=== PATIENT | male | born 1955 | race Caucasian/White ===

== ENCOUNTER → 2025-08-22 | Outpatient (CLI) | payer MEDICARE, SELFPAY ==
--- NOTE | 2025-08-22 17:30 | CT_ITS ---
PROCEDURE: SINUS/FACIAL BONE 08/22/2025 REASON FOR EXAM: OTHER CHRONIC SINUSITIS TECHNIQUE: Procedure Code: CTSI Modality: CT Procedure: SINUS/FACIAL BONE Coronal and Sagittal reconstruction series were provided. One or more dose reduction techniques were used (e.g., Automated exposure control, adjustment of the mA and/or kV according to patient size, use of iterative reconstruction technique). RADIATION DOSE SUMMARY: DLP: 2650 mGycm COMPARISON: None FINDINGS: Nasal septum and turbinates: There is no nasal septum deviation. Normal turbinates. No ирина bullosa or polyp. Left osteomeatal unit complex: No ostiomeatal unit obstruction. Right osteomeatal unit complex: No ostiomeatal unit obstruction. The ethmoids are nearly completely opacified on the right and left. The frontal sinus shows mucosal thickening measuring 0.4 cm in the right and left The maxillary sinuses show mucosal thickening measuring 0.9 cm on the right, 0.7 cm in the left.. Sphenoid sinuses: There is a mucosal thickening in the sphenoid sinus measuring 0.3 cm. Orbital and facial soft tissues: Within normal limits. CT/Sinus/Facial Bone IMPRESSION: Pansinusitis. Reading Location: [facility]
--- OUTSIDE RECORDS SUMMARY | 2025-08-22 17:33 | XMS RPT_ITS | CCD ---
Author Organization [facility] Inform ion [facility] Care Team Providers Care Section Weaver Name Role Phone DOMINGO DO, DR DIYA Freeman Primary Care Physician DOMINGO DO, DR DIYA Freeman Attending Unavailabl e DOMINGO DO, DR DIYA Freeman Primary Care Unavailabl e Domingo DO, Diya Gonzalez Primary Care Provider DOMINGO, DIYA OGNZALEZ Primary Care Unavailable RUBENS PROCTOR Attending Unavailable SELF Referring Unavailable DOMINGO, DIYA GONZALEZ Primary Care Unavailable CAMILO OCONNOR JR Attending Unavailable DOMINGO DO, DR DIYA Freeman Attending Unavailabl e DOMINGO DO, DR DIYA Freeman Primary Care Unavailabl e DOMINGO DO, DR DIYA Freeman Attending Unavailabl e DOMINGO DO, DR DIYA Freeman Primary Care Unavailabl e [place] FLORES Attending Unavailabl e DOMINGO DO, DR DIYA Freeman Primary Care Unavailabl e Allergies Allergy Classification Reported Allergen(s) Allergy Type Date of Onset Reaction(s) Facility (5 sources) Bee/Wasp/Ant venom Allergy to substance Swelling (finding) [facility] (5 sources) Penicillin; Translations: [penicillins] Drug Allergy [facility] (3 sources) Penicillins; Translations: [PENICILLINS] Drug Allergy 5 Unknown [facility] (3 sources) Bee Sting; Translations: [BEE STING] Allergy to substance 5 Swelling [facility] Medications Current Medications Medication Drug Class(es) Dates Sig (Normalized) Sig (Original) [id number] 200 actuat albuterol 0.09 mg/actuat metered dose inhaler (1 source) beta2-Adrenergic Agonist Start: 03-30-2025 End: 04-29-2025 take 2 puff(s) by inhalation every four hours as needed for wheezing albuterol HFA (PROVENTIL HFA, VENTOLIN HFA) 90 mcg/actuation inhaler Indications: Wheezing Inhale 2 puffs as instructed every 4 hours as needed for wheezing/shortnes s of breath (as needed). 1 each 03/30/2025 04/29/2025 Active Ascorbic Acid (2 sources) Vitamin C Start: 04-02-2025 Vitamin C qDay, 0 Refill(s) Start Date: 04/02/25 Status: Ordered Medication Dispense Status: Completed Total Allowed Fills: 1 Fills Dispensed: 0 brompheniramine maleate 0.4 mg/ml / dextromethorphan hydrobromide 2 mg/ml / pseudoephedrine hydrochloride 6 mg/ml oral solution (1 source) alpha-Adrenergic Agonist, Uncompetitive L-maizxj-M-aspartat e Receptor Antagonist, Sigma-1 Agonist Start: 03-30-2025 End: 04-06-2025 take 10 mL by mouth four times daily as needed Brompheniramine-P seudoeph-DM (BROMFED DM) 2-30-10 mg/5 mL syrup Indications: URI, acute , Acute cough Take 10 mL by mouth four times a day as needed (Cold Symptoms) for up to 7 days. 200 mL 03/30/2025 04/06/2025 Active cetirizine hydrochloride 10 mg oral tablet (1 source) Histamine-1 Receptor Antagonist Start: 03-30-2025 End: 04-29-2025 take 1 tablet by mouth once daily cetirizine (ZYRTEC) 10 mg tablet Indications: URI, acute , Acute cough Take 1 tablet by mouth once daily. 14 tablet 03/30/2025 04/29/2025 Active doxycycline hyclate 100 mg oral capsule (1 source) Tetracycline-class Drug Start: 02-16-2025 End: 02-26-2025 take 1 capsule by mouth twice daily doxycycline hyclate (VIBRAMYCIN) 100 mg capsule Take 1 capsule by mouth two times a day for 10 days. 20 capsule 02/16/2025 02/26/2025 Active esomeprazole 40 mg delayed release oral capsule (6 sources) Proton Pump Inhibitor Start: 03-29-2024 esomeprazole 40 mg oral delayed release capsule Dose : 40 mg = 1 cap(s), Oral, qDay, # 90 cap(s), 3 Refill(s), Pharmacy: [facility], 172.6, cm, 01/23/24 16:35:00 EDT, Height, kg, 01/26/24 12:22:00 EDT, Dosing Weight Start Date: 03/29/24 Status: Ordered Medication Dispense Status: Completed Quantity: 90.0 Unit: cap(s) Total Allowed Fills: 4 Fills Dispensed: 0 Start: 08-02-2022 esomeprazole 4 0 mg oral delayed release capsule Dose : 40 mg = 1 cap(s), Oral, qDay, # 90 cap(s), 3 Refill(s), Pharmacy: [facility], 175.3, cm, 03/28/22 15:48:00 EDT, Height Start Date: 08/02/22 Status: Ordered Start: 07-31-2019 esomeprazole 4 0 mg oral delayed release capsule Dose : 40 mg = 1 cap(s), Oral, qDay, 0 Refill(s) Start Date: 07/31/19 Status: Ordered esomeprazole 40 mg oral delayed release capsule (1 source) Start: 07-31-2019 esomeprazole 4 0 mg oral delayed release capsule Dose : 40 mg = 1 cap(s), Oral, qDay, 0 Refill(s) Start Date: 07/31/19 Status: Ordered Fish Oils (2 sources) Start: 04-02-2025 omega-3 fish o il 1000 mg oral capsule Dose : 1,000 mg = 1 cap(s), Oral, TID, # 90 cap(s), 0 Refill(s) Start Date: 04/02/25 Status: Ordered Medication Dispense Status: Completed Quantity: 90.0 Unit: cap(s) Total Allowed Fills: 1 Fills Dispensed: 0 levoFLOXacin 500 mg oral tablet (1 source) Quinolone Antimicrobial Start: 05-08-2025 End: 05-18-2025 levoFLOXacin 500 mg oral tablet Dose : 500 mg = 1 tab(s), Oral, q24h, X 10 day(s), # 10 tab(s), 0 Refill(s), 05/18/25 3:53:00 PM EDT, Pharmacy: [id number], Chronic sinusitis, 174, cm, 05/08/25 15:30:00 EDT, Height, 97.1, kg, 05/08/25 15:30:00 EDT, Dosing Weight Start Date: 05/08/25 Stop Date: 05/18/25 Status: Ordered Medication Dispense Status: Completed Quantity: 10.0 Unit: tab(s) Total Allowed Fills: 1 Fills Dispensed: 0 Indications: Chronic sinusitis, unspecified; predniSONE 10 mg oral tablet (4 sources) Start: 05-08-2025 End: 05-20-2025 predniSONE 10 mg oral tablet Dose : 10 mg = 1 tab(s), Oral, qDay, 4 tabs for 3 days, 3 tabs for 3 days, 2 tabs for 3 days, 1 tab for 3 days. Take with food, # 30 tab(s), 0 Refill(s), [id number], Chronic sinusitis Wheezing, 174, cm, 05/08/25 15:30:00 EDT, Height, kg, 05/08/25 15:30:00 EDT, Dosing Weight Start Date: 05/08/25 Stop Date: 05/20/25 Status: Ordered Medication Dispense Status: Completed Quantity: 30.0 Unit: tab(s) Total Allowed Fills: 1 Fills Dispensed: 0 Indications: Wheezing; Chronic sinusitis, unspecified; Start: 04-14-2025 End: 04-19-2025 predniSONE 20 mg oral tablet Dose : 40 mg = 2 tab(s), Oral, qDay, Take with food, X 5 day(s), # 10 tab(s), 0 Refill(s), 04/19/25 10:27:00 AM EDT, [id number], 174, cm, 04/14/25 9:30:00 EDT, Height, kg, 04/14/25 9:30:00 EDT, Dosing Weight Start Date: 04/14/25 Stop Date: 04/19/25 Status: Ordered Medication Dispense Status: Completed Quantity: 10.0 Unit: tab(s) Total Allowed Fills: 1 Fills Dispensed: 0 Start: 02-16-2025 take 1 tablet by alisha th three times daily, then take 1 tablet by mouth twice daily, then take 1 tablet by mouth once daily, then take 0.5 tablet by mouth once daily predniSONE (DELTASONE) 20 mg tablet 20 mg p.o. 3 times daily for 3 days, 20 mg p.o. twice daily for 2 days, 20 mg once a day for 1 day, half a tablet 1 day for 1 day 15 tablet 02/16/2025 Active rosuvastatin calcium 10 mg oral tablet (7 sources) HMG-CoA Reductase Inhibitor Start: 03-29-2024 rosuvastatin 10 mg oral tablet Dose : 10 mg = 1 tab(s), Oral, qDay, # 90 tab(s), 3 Refill(s), Pharmacy: [facility], 172.6, cm, 01/23/24 16:35:00 EDT, Height, kg, 01/26/24 12:22:00 EDT, Dosing Weight Start Date: 03/29/24 Status: Ordered Medication Dispense Status: Completed Quantity: 90.0 Unit: tab(s) Total Allowed Fills: 4 Fills Dispensed: 0 Start: 05-18-2022 rosuvastatin 1 0 mg oral tablet Dose : 10 mg = 1 tab(s), Oral, qDay, # 90 tab(s), 3 Refill(s), Pharmacy: [facility] ([facility]), 175.3, cm, 03/28/22 15:48:00 EDT, Height, kg, 03/28/22 15:48:00 EDT, Dosing Weight Start Date: 05/18/22 Status: Ordered Start: 06-09-2021 rosuvastatin 1 0 mg oral tablet Dose : 10 mg = 1 tab(s), Oral, qDay, # 90 tab(s), 3 Refill(s), Pharmacy: [facility], 174.4, cm, 11/18/20 8:38:00 EDT, Height, kg, 11/18/20 8:38:00 EDT, Dosing Weight Start Date: 06/09/21 Status: Ordered Vitamin D with Minerals oral tablet (2 sources) Start: 04-02-2025 take 1 tablet by mouth once daily Vitamin D with Minerals oral tablet tab(s), Oral, qDay, 0 Refill(s) Start Date: 04/02/25 Status: Ordered Medication Dispense Status: Completed Total Allowed Fills: 1 Fills Dispensed: 0 Vitamin E (2 sources) Start: 04-02-2025 vitamin E Oral , 0 Refill(s) Start Date: 04/02/25 Status: Ordered Medication Dispense Status: Completed Total Allowed Fills: 1 Fills Dispensed: 0 Problems Problem Classification Problem Date Documented Date Episodic/Chronic Bacterial infection; unspecified site (1 source) Other specified bacterial agents as the cause of diseases classified elsewhere; Translations: [Bacterial sinusitis] Onset: 02-16-2025 Episodic Disorders of lipid metabolism (5 sources) Dyslipidemia 07-31-2019 Chronic Esophageal disorders (7 sources) Gastroesophageal reflux disease; 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] 07-31-2019 Chronic Other connective tissue disease (3 sources) Disorder of tendon 07-31-2019 Episodic Other lower respiratory disease (1 source) Wheezing; Translations: [Wheezing] Onset: 03-30-2025 Episodic Other lower respiratory disease (1 source) Cough; Translations: [Acute cough] 03-30-2025 Episodic Other lower respiratory disease (1 source) Wheezing; Translations: [Wheezing] 03-30-2025 Episodic Other upper respiratory infections (2 sources) Bacterial sinusitis; Translations: [Chronic sinusitis, unspecified] Onset: 02-16-2025 02-16-2025 Chronic Other upper respiratory infections (2 sources) Acute upper respiratory infection, unspecified; Translations: [Acute upper respiratory infection] Onset: 03-30-2025 03-30-2025 Episodic Otitis media and related conditions (2 sources) Acute bilateral otitis media ; Translations: [Otitis media, unspecified, bilateral] Onset: 02-16-2025 02-16-2025 Episodic Unclassified (1 source) Acute cough; Translations: [Acute cough] Onset: 03-30-2025 Results Test Name Value Interpretation Reference Range Facility XR SINUSES PARANASAL MINIMUM 3 VIEWSon 05-09-2025 XR SINUSES PARANASAL MINIMUM 3 VIEWS ORIGINAL EXAMINATION: 5 XRAY VIEWS OF THE SINUSES05/08/2025 4:26 pm COMPARISON: None. HISTORY: ORDERING SYSTEM PROVIDED HISTORY: Reason for Exam: 8 weeks of sinus congestion FINDINGS: Mucosal thickening suspected in the maxillary sinuses. No air-fluid levels visible. No significant fluid is suspected in the frontal sinuses. Bony orbits appear intact. Degenerative changes seen of the visualized cervical spine. There is probable fluid in the mastoid air cells. IMPRESSION: 1. Suspect mucosal thickening in the maxillary sinuses. No air-fluid levels. 2. Probable fluid in the mastoid air cells. Interpreted by: Emmanuel Lopes MD Preliminary Report By: Emmanuel Lopes MD Electronically signed By Emmanuel Lopes MD Dictated Date: 05/09/2025 1:10:45 PM Prelim Date: 05/09/2025 1:11:37 PM Sign Date: 05/09/2025 1:11:37 PM Ordering Provider: DIYA Lopez [facility] .Auto Diffon 04-14-2025 Basophil, Absolute 0.1 10 3/mcL Normal 0.0-0.3 [place] Comment on above: Performed By: #### C BC, ANEU, ADIFF, CMP, GFR #### [address] [address] Basophils/100 WBC (Bld) 0.7 % Normal 0.0-2.5 [facility] Comment on above: Performed By: #### C BC, ANEU, ADIFF, CMP, GFR #### [address] [address] Eosinophil, Absolute 0.5 10 3/mcL Normal 0.0-0.7 [facility] Comment on above: Performed By: #### C BC, ANEU, ADIFF, CMP, GFR #### [address] [address] Eosinophils/100 WBC (Bld) 6.3 % High 0.0-6.0 [facility] Comment on above: Performed By: #### C BC, ANEU, ADIFF, CMP, GFR #### [address] [address] Lymphocyte, Absolute 2.3 10 3/mcL Normal 0.9-4.3 [facility] Comment on above: Performed By: #### C BC, ANEU, ADIFF, CMP, GFR #### [address] [address] Lymphocytes/100 WBC (Bld) 28.3 % Normal 20.0-40.0 [facility] Comment on above: Performed By: #### C BC, ANEU, ADIFF, CMP, GFR #### [address] [address] Monocyte, Absolute 0.8 10 3/mcL Normal 0.1-1.4 [place] Comment on above: Performed By: #### C BC, ANEU, ADIFF, CMP, GFR #### [address] [address] Monocytes/100 WBC (Bld) 9.2 % Normal 2.0-13.0 [facility] Comment on above: Performed By: #### C BC, ANEU, ADIFF, CMP, GFR #### [address] [address] Neutrophils/100 WBC (Bld) 55.5 % Normal 50.0-75.0 [facility] Comment on above: Performed By: #### C BC, ANEU, ADIFF, CMP, GFR #### [address] [address] .GFRon 04-14-2025 Estimated Glomerular Filtration Rate 94 ml/min/1.73sqm Normal [facility] Comment on above: Result Comment: Stages of Chronic Kidney Disease (CKD) Stage Description eGFR(ml/min/1.73 sq.m.) CKD 1 Normal kidney function or >=90 normal kindney function with possible kidney damage (ex. Proteinuria) CKD 2 Kidney damage with mild loss 60-89 of kidney function CKD 3a Mild to moderate loss of kidney 45-59 function CKD 3b Moderate to severe loss of 30-44 of kindey function CKD 4 Severe loss of kidney function 15-29 CKD 5 Kidney failure <15 Note: (go live 2024) the eGFR calculation was updated to the 2020 CKD-EPI creatinine equation without a race factor to calculate the eGFR results. Performed By: #### C BC, ANEU, ADIFF, CMP, GFR ####[address] [address] .NEUABSon 04-14-2025 Neutrophil, Absolute 4.6 10 3/mcL Normal 2.3-8.1 [facility] Comment on above: Performed By: #### C BC, ANEU, ADIFF, CMP, GFR #### [address] [address] CBCon 04-14-2025 Erythrocyte distribution width (RBC) [Ratio] 13.0 % Normal 11.5-15.5 [facility] Comment on above: Performed By: #### C BC, ANEU, ADIFF, CMP, GFR #### [place] [address] Hematocrit (Bld) [Volume fraction] 43.4 % Normal 40.0-52.0 [facility] Comment on above: Performed By: #### C BC, ANEU, ADIFF, CMP, GFR #### [place] [address] Hgb 14.8 G/dL Normal 13.0-17.5 [facility] Comment on above: Performed By: #### C BC, ANEU, ADIFF, CMP, GFR #### [place] [address] MCH (RBC) [Entitic mass] 31.6 pg Normal 27.0-33.0 [facility] Comment on above: Performed By: #### C BC, ANEU, ADIFF, CMP, GFR #### [place] [address] MCHC 34.0 G/dL Normal 32.0-36.0 [facility] Comment on above: Performed By: #### C BC, ANEU, ADIFF, CMP, GFR #### [place] [address] MCV (RBC) [Entitic vol] 93.0 fL Normal 81.0-100.0 [facility] Comment on above: Performed By: #### C BC, ANEU, ADIFF, CMP, GFR #### [address] [address] Platelet 211 10 3/mcL Normal 150-450 [facility] Comment on above: Performed By: #### C BC, ANEU, ADIFF, CMP, GFR #### [address] [address] Platelet mean volume (Bld) [Entitic vol] 7.5 fL Normal 6.4-10.5 [facility] Comment on above: Performed By: #### C BC, ANEU, ADIFF, CMP, GFR #### [address] [address] RBC 4.67 10 6/mcL Normal 4.50-6.00 [facility] Comment on above: Performed By: #### C BC, ANEU, ADIFF, CMP, GFR #### [address] [address] WBC 8.3 10 3/mcL Normal 4.5-10.8 [facility] Comment on above: Performed By: #### C BC, ANEU, ADIFF, CMP, GFR #### [place] [id number] CMPon 04-14-2025 Albumin Level 4.1 G/dL Normal 3.4-4.8 [facility] Comment on above: Performed By: #### C BC, ANEU, ADIFF, CMP, GFR #### [place] [address] Albumin/Globulin [Mass ratio] 0.9 {ratio} Low 1.1-2.5 [facility] Comment on above: Performed By: #### C BC, ANEU, ADIFF, CMP, GFR #### [address] [address] ALP [Catalytic activity/Vol] 86 U/L Normal 40-135 [facility] Comment on above: Performed By: #### C BC, ANEU, ADIFF, CMP, GFR #### [place] [id number] ALT [Catalytic activity/Vol] 37 U/L Normal 16-63 [facility] Comment on above: Performed By: #### C BC, ANEU, ADIFF, CMP, GFR #### [place] [id number] AST [Catalytic activity/Vol] 22 U/L Normal 10-40 [facility] Comment on above: Performed By: #### C BC, ANEU, ADIFF, CMP, GFR #### [address] [address] Bili Total 0.5 mg/dL Normal 0.2-1.0 [facility] Comment on above: Result Comment: Use of this assay is not recommended for patients undergoing treatment with eltrombopag due to the potential for falsely elevated results. Performed By: #### C BC, ANEU, ADIFF, CMP, GFR #### [address] [address] BUN/Creatinine Ratio 16 ratio Normal 7-27 [place] Comment on above: Performed By: #### C BC, ANEU, ADIFF, CMP, GFR #### [address] [address] Calcium [Mass/Vol] 9.8 mg/dL Normal 8.4-10.2 [facility] Comment on above: Performed By: #### C BC, ANEU, ADIFF, CMP, GFR #### [address] [address] Chloride [Moles/Vol] 102 mmol/L Normal 98-107 [place] Comment on above: Performed By: #### C BC, ANEU, ADIFF, CMP, GFR #### [address] [address] CO2 [Moles/Vol] 28 mmol/L Normal 23-31 [facility] Comment on above: Performed By: #### C BC, ANEU, ADIFF, CMP, GFR #### [address] [address] Creatinine [Mass/Vol] 0.88 mg/dL Normal 0.67-1.17 [facility] Comment on above: Performed By: #### C BC, ANEU, ADIFF, CMP, GFR #### [address] [address] Electrolyte Balance 9.0 mEq/L Normal 4.0-15.0 [facility] Comment on above: Performed By: #### C BC, ANEU, ADIFF, CMP, GFR #### [address] [address] Globulin 4.4 G/dL Normal 2.7-4.4 [facility] Comment on above: Performed By: #### C BC, ANEU, ADIFF, CMP, GFR #### [address] [address] Glucose [Mass/Vol] 108 mg/dL Normal 80-115 [facility] Comment on above: Performed By: #### C BC, ANEU, ADIFF, CMP, GFR #### [address] [address] Potassium [Moles/Vol] 4.2 mmol/L Normal 3.5-5.1 [facility] Comment on above: Performed By: #### C BC, ANEU, ADIFF, CMP, GFR #### [address] [address] Sodium [Moles/Vol] 139 mmol/L Normal 136-145 [facility] Comment on above: Performed By: #### C BC, ANEU, ADIFF, CMP, GFR #### [address] [address] Total Protein 8.5 G/dL High 6.4-8.2 [facility] Comment on above: Performed By: #### C BC, ANEU, ADIFF, CMP, GFR #### [address] [address] Urea nitrogen [Mass/Vol] 14 mg/dL Normal 7-18 [facility] Comment on above: Performed By: #### C BC, ANEU, ADIFF, CMP, GFR #### [address] [address] LABORATORYOrdered By: SYSTEM SYSTEM on 04-14-2025 Albumin BCP dye [Mass/Vol] 4.1 G/dL Normal 3.4 - 4.8 G/dL AO ADM SS Albumin/Globulin [Mass ratio] 0.9 {ratio} Low 1.1 - 2.5 ratio AO ADM SS ALP [Catalytic activity/Vol] 86 U/L Normal 40 - 135 U/L AO ADM SS ALT With P-5'-P [Catalytic activity/Vol] 37 U/L Normal 16 - 63 U/L AO ADM SS AST With P-5'-P [Catalytic activity/Vol] 22 U/L Normal 10 - 40 U/L AO ADM SS Basophils (Bld) [#/Vol] 0.1 103/mcL Normal 0.0 - 0.3 10^3/mcL AO Workflow SS Basophils/100 WBC (Bld) 0.7 % Normal 0.0 - 2.5 % AO Workflow SS Bilirubin [Mass/Vol] 0.5 mg/dL Normal 0.2 - 1 .0 mg/dL AO ADM SS Comment on above: Interpretive Data: U se of this assay is not recommended for patients undergoing treatment with eltrombopag due to the potential for falsely elevated results. Calcium [Mass/Vol] 9.8 mg/dL Normal 8.4 - 10. 2 mg/dL AO ADM SS Chloride [Moles/Vol] 102 mmol/L Normal 98 - 10 7 mmol/L AO ADM SS CO2 [Moles/Vol] 28 mmol/L Normal 23 - 31 mmol/L AO ADM SS Creatinine [Mass/Vol] 0.88 mg/dL Normal 0.67 - 1.17 mg/dL AO ADM SS Electrolyte Balance 9.0 mEq/L Normal 4.0 - 15 .0 mEq/L AO ADM SS Eosinophil, Absolute 0.5 103/mcL Normal 0.0 - 0 .7 10^3/mcL AO Workflow SS Eosinophils/100 WBC (Bld) 6.3 % High 0.0 - 6.0 % AO Workflow SS Erythrocyte distribution width (RBC) [Ratio] 13.0 % Normal 11.5 - 15.5 % AO Workflow SS Estimated Glomerular Filtration Rate 94 ml/min/1.73sqm Invalid Interpretation Code AO Chemistry S Comment on above: Interpretive Data: Stages of Chronic Kidney Disease (CKD) Stage Description eGFR(ml/min/1.73 sq.m.) CKD 1 Normal kidney function or >=90 normal kindney function with possible kidney damage (ex. Proteinuria) CKD 2 Kidney damage with mild loss 60-89 of kidney function CKD 3a Mild to moderate loss of kidney 45-59 function CKD 3b Moderate to severe loss of 30-44 of kindey function CKD 4 Severe loss of kidney function 15-29 CKD 5 Kidney failure <15 Note: (go live 2024) the eGFR calculation was updated to the 2020 CKD-EPI creatinine equation without a race factor to calculate the eGFR results. Globulin 4.4 G/dL Normal 2.7 - 4.4 G/dL AO ADM SS Glucose [Mass/Vol] 108 mg/dL Normal 80 - 115 mg/dL AO ADM SS Hematocrit (Bld) [Volume fraction] 43.4 % Normal 40.0 - 52.0 % AO Workflow SS Hemoglobin (Bld) [Mass/Vol] 14.8 G/dL Normal 13.0 - 17.5 G/dL AO Workflow SS Lymphocytes (Bld) [#/Vol] 2.3 103/mcL Normal 0.9 - 4.3 10^3/mcL AO Workflow SS Lymphocytes/100 WBC (Bld) 28.3 % Normal 20.0 - 40.0 % AO Workflow SS MCH (RBC) [Entitic mass] 31.6 pg Normal 27.0 - 33.0 pg AO Workflow SS MCHC 34.0 G/dL Normal 32.0 - 36.0 G/dL AO Workflow SS MCV (RBC) [Entitic vol] 93.0 fL Normal 81.0 - 100.0 fL AO Workflow SS Monocytes (Bld) [#/Vol] 0.8 103/mcL Normal 0.1 - 1.4 10^3/mcL AO Workflow SS Monocytes/100 WBC (Bld) 9.2 % Normal 2.0 - 13.0 % AO Workflow SS Neutrophils (Bld) [#/Vol] 4.6 103/mcL Normal 2.3 - 8.1 10^3/mcL AO Workflow SS Neutrophils/100 WBC (Bld) 55.5 % Normal 50.0 - 75.0 % AO Workflow SS Platelet mean volume (Bld) [Entitic vol] 7.5 fL Normal 6.4 - 10.5 fL AO Workflow SS Platelets (Bld) [#/Vol] 211 103/mcL Normal 150 - 450 10^3/mcL AO Workflow SS Potassium [Moles/Vol] 4.2 mmol/L Normal 3.5 - 5.1 mmol/L AO ADM SS Protein [Mass/Vol] 8.5 G/dL High 6.4 - 8.2 G/dL AO ADM SS RBC (Bld) [#/Vol] 4.67 106/mcL Normal 4.50 - 6.0 0 10^6/mcL AO Workflow SS Sodium [Moles/Vol] 139 mmol/L Normal 136 - 145 mmol/L AO ADM SS Urea nitrogen [Mass/Vol] 14 mg/dL Normal 7 - 18 mg/dL AO ADM SS Urea nitrogen/Creatinine [Mass ratio] 16 ratio Normal 7 - 27 ratio AO ADM SS WBC (Bld) [#/Vol] 8.3 103/mcL Normal 4.5 - 10.8 10^3/mcL AO Workflow SS XR CHEST 2 VIEWSon 5 XR CHEST 2 VIEWS ORIGINAL EXAMINATION: TWO XRAY VIEWS OF THE CHEST TECHNIQUE: CHEST PA and LATERAL COMPARISON: 12/20/2017 HISTORY: ORDERING SYSTEM PROVIDED HISTORY: Reason for Exam: cough greater than 3 weeks FINDINGS: The heart is normal in size. The mediastinal silhouette is unremarkable. Atherosclerosis of the aorta. No consolidation. No vascular congestion. No pleural effusion or pneumothorax. No aggressive osseous lesions. Mild degenerative changes of the thoracic spine. Spinal curvature noted. IMPRESSION: No acute radiographic finding. I have personally reviewed the images of this examination and agree with the resident's findings and interpretation. Interpreted by: Brody Multani MD Preliminary Report By: Daniel Shane Electronically signed By Brody Multani MD Dictated Date: 04/14/2025 10:56:18 AM Prelim Date: 04/14/2025 12:02:29 PM Sign Date: 04/14/2025 12:02:29 PM [facility] -------- GEORGES MELGAR ([id number]) 1955 Date Time Provider Department 03/30/25 9:15 AM CAMILO OCONNOR JR [facility] During your visit today, we recorded the following information about you: Temperature Pulse Respiration Blood pressure 97.5 degrees 76/minute 18/minute 179/80 Weight 98.4 kg Camilo Oconnor Jr., [employer] 03/30/2025 9:56 AM Signed - Continue taking Cetirizine (Zyrtec) once daily as you started. - Use the Bromfed DM cough syrup provided. Take as needed every 4 hours for cough and nasal congestion; best taken at bedtime since it may cause drowsiness. Avoid using it before activities that require full alertness. - Try the albuterol inhaler only if you notice wheezing or chest tightness. Prime a new inhaler (or one unused for =3 months) per instructions, then take 2 puffs 2 minutes apart; you may repeat every 4-6 hours as needed. You might feel a brief ?jumpy? sensation for 10-30 minutes, which is normal. - Recheck your blood pressure outside the office--either at a pharmacy or with a reliable upper-arm home cuff (avoid wrist devices)--to see if the elevated reading today reflects ?white-coat? effect. - Call or return to the clinic if your cough, chest congestion, or ear symptoms worsen, if you develop a fever, or if you have any new concerns. Camilo Oconnor Jr., YOVANNY.INDUSTRIAL RETROFIT DESIGNER 03/30/2025 10:02 AM Signed [facility] [place] Subjective Georges Melgar is a 69 year old male. Patient presents with: Cough: Sinus congestion, ears plugged x 1 month Finished medication from last visit only felt better for 1 week Cough Cough and Congestion: - Cough and congestion x3 weeks, with recent onset of right ear fullness. - Describes a raspy gurgling sound when breathing, particularly noticeable at night. - Denies fever, dyspnea, chest pain, nausea, emesis, diarrhea, or rashes. - Began taking Zyrtec yesterday; denies use of Kimber or other antihistamines prior. - No history of asthma. - Denies previous tonsillectomy. Hypertension: - Denies known history of HTN. - Recent BP readings: 148/88 mmHg in February; 179/80 mmHg today. - Consumed several cups of coffee prior to today's visit. Review of Systems Respiratory: Positive for cough. Constitutional: (-) fever Ears/Nose/Mouth/Th roat: (+) right ear fullness, (+) hoarseness, (-) ear pain Cardiovascular: (-) chest pain Respiratory: (+) cough, (+) wheezing, (+) noisy breathing, (-) shortness of breath Gastrointestinal: (-) nausea, (-) vomiting, (-) diarrhea Skin: (-) rash Objective BP 179/80 Pulse 76 Temp 36.4 ?C (97.5 ?F) Resp 18 Wt 98.4 kg (217 lb) SpO2 95% Physical Exam General: No acute distress. HEENT: Left tympanic membrane pearly ogden, no signs of infection; right tympanic membrane pearly ogden, no signs of infection; ear canals appear normal, no erythema; no cerumen impaction bilaterally; no pain with manipulation of right earlobe; oropharynx unremarkable, no cobblestoning, tonsils present and small. CV: Heart sounds normal, regular rhythm. Resp: Lungs clear to auscultation bilaterally, no rales, no stridor. Abd: Bowel sounds normal; no tenderness to palpation. Skin: Warm and dry { 1. URI, acute (J06.9) 2. Acute cough (R05.1) 3. Wheezing (R06.2) - Symptoms and exam findings most consistent with viral URI; bacterial infection less likely given absence of fever, normal tympanic membranes, and no cobblestoning of the oropharynx. - Start Bromfed DM every 4 hours PRN for cough; advised patient of sedative effects and to avoid operating heavy machinery. - Continue Zyrtec as started by patient. - Start albuterol inhaler 2 puffs every 4-6 hours PRN for wheezing; provided education on proper use and potential side effects (e.g., jitteriness). - Advised patient to follow up if symptoms worsen or do not improve. and Recording using ambient [employer] software for draft documentation of the visit was discussed with the patient/authorized benefits representative; all questions welcomed and answered. Patient/authorized benefits representative agreed to proceed Differential Diagnoses - Upper respiratory infection viral is more likely for the following reason(s): suggested by HANDP - Otitis media is less likely for the following reason(s): HANDP not suggestive Disposition The patient was discharged. Procedures Referring Provider: SELF [[id number]] Allergies As of Date: 03/30/2025 Noted Allergy Reaction BEE STING 02/16/2025 7 - Swelling PENICILLINS 02/16/2025 16 - Unknown Date Reviewed: 03/30/2025 Reviewed by: Camilo Oconnor Jr., ELEVATOR CONSTRUCTOR ELECTRIC.INDUSTRIAL RETROFIT DESIGNER - Fully Assessed Reason for Visit: Cough [28] Cmt: Sinus congestion, ears plugged x 1 month Finished medication from last visit only felt better for 1 week Primary Visit Diagnosis:URI, acute [J06.9] Other Visit Diagnoses:Acute cough [R05.1] Wheezing [R (more content not included)... [facility] CNOVon 02-16-2025 CNOV Office Visit ([facility]) -------- GEORGES MELGAR ([id number]) 1955 M Date Time Provider Department 02/16/25 9:20 AM RUBENS PROCTOR [facility] During your visit today, we recorded the following information about you: Temperature Pulse Respiration Blood pressure 97.8 degrees 78/minute 18/minute 148/88 Weight 98.9 kg Aisha Gong LPN 02/16/2025 9:50 AM Signed Patient declined depression screening at this time. CLARE Goodman Edmund, DO 02/16/2025 9:45 AM Signed Sinusitis You have been seen for a sinus infection. Sinus infections are common. They often happen after people have a virus or a common cold. Symptoms are: Pain in the face, green or yellow mucous from the nose, fever (temperature higher than 100.4?F / 38?C) and chills. There may also be a feeling of fullness or pressure in the face. Decongestants may be used to help the sinuses drain. Sometimes a steroid spray is used. You may need antibiotics for the infection. Not all cases of sinusitis need antibiotics. Viruses cause most sinusitis. Antibiotics do not work on viruses. Sometimes sinusitis and be caused by bacteria. These cases usually get better with medicine to help the sinuses drain. Antibiotics should be given only to patients who have symptoms for more than 2 weeks and if they have fever, severe sinus pain and pus mixed in with the mucus. YOU SHOULD SEEK MEDICAL ATTENTION IMMEDIATELY, EITHER HERE OR AT THE NEAREST EMERGENCY DEPARTMENT, IF ANY OF THE FOLLOWING OCCURS: You do not get better with treatment. You have severe headaches and high fever (temperature higher than 100.4?F / 38?C) or any confusion. You have worse pain in the face Your face gets more swollen Rubens Proctor DO 02/16/2025 9:50 AM Signed [facility] Subjective Georges Melgar is a 69 year old male. Patient presents with: Cough: Chest/sinus congestion all over 2 weeks Cough Georges Melgar is a 69-year-old male, otherwise healthy, presenting with sinus congestion, chest congestion, and cough. Georges reports a 2-week history of sinus congestion, chest congestion, and cough. Over the past 3-4 days, he has noticed worsening chest congestion, described as a sensation of congestion when breathing. He reports clear sputum production and denies fever, chills, otalgia, or recent travel outside of the state or country. He has not contacted his primary care physician regarding these symptoms. He denies a history of asthma, COPD, or dental infections. He is a nonsmoker. Review of Systems Respiratory: Positive for cough. Constitutional: (-) fever Ears/Nose/Mouth/Th roat: (+) sinus congestion, (-) ear pain Respiratory: (+) chest congestion, (+) cough, (+) clear sputum production, (+) chest discomfort with breathing Objective BP 148/88 Pulse 78 Temp 36.6 ?C (97.8 ?F) Resp 18 Wt 98.9 kg (218 lb) SpO2 98% Physical Exam General: No acute distress. HEENT: Right tympanic membrane erythematous and bulging; bilateral tympanic membranes swollen; significant sinus congestion; post-nasal drip; mild nasal congestion; no significant cervical lymphadenopathy. Resp: Lungs clear to auscultation bilaterally; no wheezing. {ASSESSMENT/PLAN: 1. Bacterial sinusitis - ICD9: 473.9, 041.9, ICD10: J32.9, B96.89 (primary diagnosis) 2. Acute otitis media, bilateral - ICD9: 382.9, ICD10: H66.93 Persistent symptoms for over two weeks, including sinus congestion, chest congestion, and cough. Bilateral ear examination reveals erythema and bulging tympanic membranes. No history of asthma or COPD. Lungs clear to auscultation, no wheezing noted. Differential diagnosis includes bacterial sinusitis and acute otitis media, likely contributing to post-nasal drip and chest congestion. - Prescribed doxycycline for ear infection and sinus infection given penicillin allergy. - Initiated a short course of oral prednisone to reduce chest congestion and cough. Continue NyQuil DayQuil, cough, decongestions, [id number] medications as needed. Other symptoms should be more self-limiting - Advised patient to follow up with primary care physician if symptoms do not improve within one week. - Sent prescriptions to patient's pharmacy. Rubens Proctor DO Differential Diagnoses - Bilateral otitis, bacterial sinus infection is more likely for the following reason(s): suggested by HANDP - Pneumonia is less likely for the following reason(s): HANDP not suggestive Disposition The patient was discharged. OTC Medications were advised: Procedures Allergies As of Date: 02/16/2025 Noted Allergy Reaction BEE STING 02/16/2025 7 - Swelling PENICILLINS 02/16/2025 16 - Unknown Date Reviewed: 02/16/2025 Reviewed by: Rubens Proctor DO - Fully Assessed Reason for Visit: Cough [28] Cmt: Chest/sinus congestion all over 2 weeks Primary Visit Diagnosis:B (more content not included)... Normal [facility] .GFRon 12-13-2024 Estimated Glomerular Filtration Rate 66 ml/min/1.73sqm Normal [facility] Comment on above: Result Comment: Stages of Chronic Kidney Disease (CKD) Stage Description eGFR(ml/min/1.73 sq.m.) CKD 1 Normal kidney function or >=90 normal kindney function with possible kidney damage (ex. Proteinuria) CKD 2 Kidney damage with mild loss 60-89 of kidney function CKD 3a Mild to moderate loss of kidney 45-59 function CKD 3b Moderate to severe loss of 30-44 of kindey function CKD 4 Severe loss of kidney function 15-29 CKD 5 Kidney failure <15 Note: (go live 2024) the eGFR calculation was updated to the 2020 CKD-EPI creatinine equation without a race factor to calculate the eGFR results. Performed By: #### L IPID, GFR, PSA, CMP #### [address] [address] CMPon 12-13-2024 Albumin Level 4.0 G/dL Normal 3.4-4.8 [facility] Comment on above: Performed By: #### L IPID, GFR, PSA, CMP #### [place] [id number] Albumin/Globulin [Mass ratio] 1.0 {ratio} Low 1.1-2.5 [facility] Comment on above: Performed By: #### L IPID, GFR, PSA, CMP #### [place] [address] ALP [Catalytic activity/Vol] 97 U/L Normal 40-135 [facility] Comment on above: Performed By: #### L IPID, GFR, PSA, CMP #### [place] [address] ALT [Catalytic activity/Vol] 48 U/L Normal 16-63 [facility] Comment on above: Performed By: #### L IPID, GFR, PSA, CMP #### [place] [address] AST [Catalytic activity/Vol] 26 U/L Normal 10-40 [facility] Comment on above: Performed By: #### L IPID, GFR, PSA, CMP #### [place] [address] Bili Total 0.3 mg/dL Normal 0.2-1.0 [facility] Comment on above: Result Comment: Use of this assay is not recommended for patients undergoing treatment with eltrombopag due to the potential for falsely elevated results. Performed By: #### L IPID, GFR, PSA, CMP #### [place] [address] BUN/Creatinine Ratio 15 ratio Normal 7-27 [place] Comment on above: Performed By: #### L IPID, GFR, PSA, CMP #### [place] [id number] Calcium [Mass/Vol] 9.3 mg/dL Normal 8.4-10.2 [facility] Comment on above: Performed By: #### L IPID, GFR, PSA, CMP #### [address] [address] Chloride [Moles/Vol] 103 mmol/L Normal 98-107 [place] Comment on above: Performed By: #### L IPID, GFR, PSA, CMP #### [address] [address] CO2 [Moles/Vol] 31 mmol/L Normal 23-31 [facility] Comment on above: Performed By: #### L IPID, GFR, PSA, CMP #### [address] [address] Creatinine [Mass/Vol] 1.21 mg/dL Normal 0.70-1.30 [facility] Comment on above: Result Comment: Test ing performed on Evaporcool Dimension EXL analyzer using a modified kinetic Alicia technique. Performed By: #### L IPID, GFR, PSA, CMP #### [address] [address] Electrolyte Balance 6.0 mEq/L Normal 4.0-15.0 [facility] Comment on above: Performed By: #### L IPID, GFR, PSA, CMP #### [address] [address] Globulin 4.1 G/dL High 1.5-3.8 [facility] Comment on above: Performed By: #### L IPID, GFR, PSA, CMP #### [address] [address] Glucose [Mass/Vol] 103 mg/dL Normal 80-115 [facility] Comment on above: Performed By: #### L IPID, GFR, PSA, CMP #### [address] [address] Potassium [Moles/Vol] 4.4 mmol/L Normal 3.5-5.1 [facility] Comment on above: Performed By: #### L IPID, GFR, PSA, CMP #### [address] [address] Sodium [Moles/Vol] 140 mmol/L Normal 136-145 [facility] Comment on above: Performed By: #### L IPID, GFR, PSA, CMP #### [address] [address] Total Protein 8.1 G/dL Normal 6.4-8.2 [facility] Comment on above: Performed By: #### L IPID, GFR, PSA, CMP #### [address] [address] Urea nitrogen [Mass/Vol] 18 mg/dL Normal 7-18 [facility] Comment on above: Performed By: #### L IPID, GFR, PSA, CMP #### [address] [address] LIPIDon 12-13-2024 Cholesterol [Mass/Vol] 186 mg/dL Normal 0-200 [facility] Comment on above: Result Comment: Chol esterol Reference Interval: Less than 200 Desirable 200-239 Borderline high risk 240 and above High risk Performed By: #### L IPID, GFR, PSA, CMP #### [address] [address] Cholesterol in HDL [Mass/Vol] 39 mg/dL Low 40-60 [facility] Comment on above: Performed By: #### L IPID, GFR, PSA, CMP #### [address] [address] Cholesterol in LDL [Mass/Vol] 121 mg/dL Normal 0-130 [facility] Comment on above: Performed By: #### L IPID, GFR, PSA, CMP #### [address] [address] Triglyceride [Mass/Vol] 131 mg/dL Normal 0-150 [facility] Comment on above: Result Comment: Trig lyceride Reference Interval: Less than 150 Normal 150-199 Borderline high risk 200-499 High risk 500 or higher Very high risk Performed By: #### L IPID, GFR, PSA, CMP #### [address] [address] PSAon 12-13-2024 Prostate Specific Antigen 0.59 ng/mL Normal 0.00-4.00 [facility] Comment on above: Performed By: #### L IPID, GFR, PSA, CMP #### [address] [address] .GFRon 11-25-2023 GFR 80 ml/min/1.73sqm [facility] Comment on above: Result Comment: GFR Population mean for , Non- Americans Ages 20-29 = 116 mL/min/1.73 sq.m. Ages 30-39 = 107 mL/min/1.73 sq.m. Ages 40-49 = 99 mL/min/1.73 sq.m. Ages 50-59 = 93 mL/min/1.73 sq.m. Ages 60-69 = 85 mL/min/1.73 sq.m. Ages 70+ = 75 mL/min/1.73 sq.m. Chronic Kidney Disease: Less than 60 mL/min/1.73 square meters End Stage Renal Disease: Less than 15 mL/min/1.73 square meters Performed By: #### P SA, LIPID, CMP, GFR #### [address] [address] GFR Non- 66 ml/min/1.73sqm Normal [facility] Comment on above: Result Comment: GFR Population mean for , Non- Americans Ages 20-29 = 116 mL/min/1.73 sq.m. Ages 30-39 = 107 mL/min/1.73 sq.m. Ages 40-49 = 99 mL/min/1.73 sq.m. Ages 50-59 = 93 mL/min/1.73 sq.m. Ages 60-69 = 85 mL/min/1.73 sq.m. Ages 70+ = 75 mL/min/1.73 sq.m. Chronic Kidney Disease: Less than 60 mL/min/1.73 square meters End Stage Renal Disease: Less than 15 mL/min/1.73 square meters Performed By: #### P SA, LIPID, CMP, GFR #### [address] [address] CMPon 11-25-2023 Albumin Level 4.0 G/dL Normal 3.4-4.8 [facility] ([place]) Comment on above: Performed By: #### P SA, LIPID, CMP, GFR #### [address] [address] Albumin/Globulin [Mass ratio] 1.1 {ratio} Normal 1.1-2.5 [facility] Comment on above: Performed By: #### P SA, LIPID, CMP, GFR #### [address] [address] ALP [Catalytic activity/Vol] 79 U/L Normal 40-135 [facility] Comment on above: Performed By: #### P SA, LIPID, CMP, GFR #### [address] [address] ALT [Catalytic activity/Vol] 57 U/L Normal 16-63 [facility] Comment on above: Performed By: #### P SA, LIPID, CMP, GFR #### [address] [address] AST [Catalytic activity/Vol] 22 U/L Normal 10-40 [facility] Comment on above: Performed By: #### P SA, LIPID, CMP, GFR #### [address] [address] Bili Total 0.6 mg/dL Normal 0.2-1.0 [facility] Comment on above: Result Comment: Use of this assay is not recommended for patients undergoing treatment with eltrombopag due to the potential for falsely elevated results. Performed By: #### P SA, LIPID, CMP, GFR #### [address] [address] BUN/Creatinine Ratio 20 ratio Normal 7-27 [facility] ([place]) Comment on above: Performed By: #### P SA, LIPID, CMP, GFR #### [address] [address] Calcium [Mass/Vol] 8.9 mg/dL Normal 8.4-10.2 [facility] ([place]) Comment on above: Performed By: #### P SA, LIPID, CMP, GFR #### [address] [address] Chloride [Moles/Vol] 103 mmol/L Normal 98-107 [facility] ([place]) Comment on above: Performed By: #### P SA, LIPID, CMP, GFR #### [address] [address] CO2 [Moles/Vol] 26 mmol/L Normal 23-31 [facility] ([place]) Comment on above: Performed By: #### P SA, LIPID, CMP, GFR #### [address] [address] Creatinine [Mass/Vol] 1.11 mg/dL Normal 0.70-1.30 [facility] ([place]) Comment on above: Performed By: #### P SA, LIPID, CMP, GFR #### [address] [address] Electrolyte Balance 13.0 mEq/L Normal 4.0-15.0 [facility] ([place]) Comment on above: Performed By: #### P SA, LIPID, CMP, GFR #### [address] [address] Globulin 3.7 G/dL Normal [facility] [place] Comment on above: Performed By: #### P SA, LIPID, CMP, GFR #### [address] [address] Glucose [Mass/Vol] 110 mg/dL Normal 80-115 [facility] ([place]) Comment on above: Performed By: #### P SA, LIPID, CMP, GFR #### [address] [address] Potassium [Moles/Vol] 4.6 mmol/L Normal 3.5-5.1 [facility] ([place]) Comment on above: Performed By: #### P SA, LIPID, CMP, GFR #### [address] [address] Sodium [Moles/Vol] 142 mmol/L Normal 136-145 [facility] ([place]) Comment on above: Performed By: #### P SA, LIPID, CMP, GFR #### [address] [address] Total Protein 7.7 G/dL Normal 6.4-8.2 [facility] ([place]) Comment on above: Performed By: #### P SA, LIPID, CMP, GFR #### [address] [address] Urea nitrogen [Mass/Vol] 22 mg/dL High 7-18 [facility] Comment on above: Performed By: #### P SA, LIPID, CMP, GFR #### [address] [address] LIPIDon 11-25-2023 Cholesterol [Mass/Vol] 179 mg/dL Normal 0-200 [facility] ([place]) Comment on above: Result Comment: Chol esterol Reference Interval: Less than 200 Desirable 200-239 Borderline high risk 240 and above High risk Performed By: #### P SA, LIPID, CMP, GFR #### [address] [address] Cholesterol in HDL [Mass/Vol] 43 mg/dL Normal 40-60 [facility] Comment on above: Performed By: #### P SA, LIPID, CMP, GFR #### [address] [address] Cholesterol in LDL [Mass/Vol] 106 mg/dL Normal 0-130 [facility] Comment on above: Performed By: #### P SA, LIPID, CMP, GFR #### [address] [address] Triglyceride [Mass/Vol] 151 mg/dL High 0-150 [facility] Comment on above: Result Comment: Trig lyceride Reference Interval: Less than 150 Normal 150-199 Borderline high risk 200-499 High risk 500 or higher Very high risk Performed By: #### P SA, LIPID, CMP, GFR #### [place] [address] [place], [place] [address] PSAon 11-25-2023 Prostate Specific Antigen 0.59 ng/mL Normal 0.00-4.00 [facility] Comment on above: Performed By: #### P SA, LIPID, CMP, GFR #### [place] [address] [place], [place] [address] LABORATORYOrdered By: SYSTEM SYSTEM on 11-05-2022 Albumin BCP dye [Mass/Vol] 4.2 G/dL Invalid Interpretation Code 3.4 - 4.8 G/dL AO ADM SS Albumin/Globulin [Mass ratio] 1.2 {ratio} Invalid Interpretation Code 1.1 - 2.5 ratio AO ADM SS ALP [Catalytic activity/Vol] 86 U/L Invalid Interpretation Code 40 - 135 U/L AO ADM SS ALT With P-5'-P [Catalytic activity/Vol] 45 U/L Invalid Interpretation Code 16 - 63 U/L AO ADM SS AST With P-5'-P [Catalytic activity/Vol] 20 U/L Invalid Interpretation Code 10 - 40 U/L AO ADM SS Bilirubin [Mass/Vol] 0.5 mg/dL Invalid Interpretation Code 0.2 - 1.0 mg/dL AO ADM SS Calcium [Mass/Vol] 9.1 mg/dL Invalid Interpretation Code 8.4 - 10.2 mg/dL AO ADM SS Chloride [Moles/Vol] 103 mmol/L Invalid Interpretation Code 98 - 107 mmol/L AO ADM SS CO2 [Moles/Vol] 29 mmol/L Invalid Interpretation Code 23 - 31 mmol/L AO ADM SS Creatinine [Mass/Vol] 1.09 mg/dL Invalid Interpretation Code 0.70 - 1.30 mg/dL AO ADM SS Electrolyte Balance 8.0 mEq/L Invalid Interpretation Code 4.0 - 15.0 mEq/L AO ADM SS GFR 82 ml/min/1.73sqm Invalid Interpretation Code AO Chemistry S GFR Non- 68 ml/min/1.73sqm Invalid Interpretation Code AO Chemistry S Globulin 3.5 G/dL Invalid Interpretation Code AO ADM SS Glucose [Mass/Vol] 110 mg/dL Invalid Interpretation Code 80 - 115 mg/dL AO ADM SS Potassium [Moles/Vol] 4.6 mmol/L Invalid Interpretation Code 3.5 - 5.1 mmol/L AO ADM SS Prostate specific Ag [Mass/Vol] 0.63 ng/mL Invalid Interpretation Code 0.00 - 4.00 ng/mL AO ADM SS Protein [Mass/Vol] 7.7 G/dL Invalid Interpretation Code 6.4 - 8.2 G/dL AO ADM SS Sodium [Moles/Vol] 140 mmol/L Invalid Interpretation Code 136 - 145 mmol/L AO ADM SS Urea nitrogen [Mass/Vol] 16 mg/dL Invalid Interpretation Code 7 - 18 mg/dL AO ADM SS Urea nitrogen/Creatinine [Mass ratio] 15 ratio Invalid Interpretation Code 7 - 27 ratio AO ADM SS LABORATORYOrdered By: Mimi Bowman on 11-05-2022 Cholesterol [Mass/Vol] 184 mg/dL Invalid Interpretation Code 0 - 200 mg/dL AO ADM SS Cholesterol in HDL [Mass/Vol] 49 mg/dL Invalid Interpretation Code 40 - 60 mg/dL AO ADM SS Cholesterol in LDL [Mass/Vol] 116 mg/dL Invalid Interpretation Code 0 - 130 mg/dL AO ADM SS Triglyceride [Mass/Vol] 95 mg/dL Invalid Interpretation Code 0 - 150 mg/dL AO ADM SS LABORATORYOrdered By: Mimi Bowman on 04-20-2022 Albumin BCP dye [Mass/Vol] 4.0 G/dL Invalid Interpretation Code 3.4 - 4.8 G/dL AO ADM SS Albumin/Globulin [Mass ratio] 1.1 {ratio} Invalid Interpretation Code 1.1 - 2.5 ratio AO ADM SS ALP [Catalytic activity/Vol] 95 U/L Invalid Interpretation Code 40 - 135 U/L AO ADM SS ALT With P-5'-P [Catalytic activity/Vol] 44 U/L Invalid Interpretation Code 16 - 63 U/L AO ADM SS AST With P-5'-P [Catalytic activity/Vol] 18 U/L Invalid Interpretation Code 10 - 40 U/L AO ADM SS Bilirubin [Mass/Vol] 0.4 mg/dL Invalid Interpretation Code 0.2 - 1.0 mg/dL AO ADM SS Calcium [Mass/Vol] 9.0 mg/dL Invalid Interpretation Code 8.4 - 10.2 mg/dL AO ADM SS Chloride [Moles/Vol] 104 mmol/L Invalid Interpretation Code 98 - 107 mmol/L AO ADM SS Cholesterol [Mass/Vol] 183 mg/dL Invalid Interpretation Code 0 - 200 mg/dL AO ADM SS Cholesterol in HDL [Mass/Vol] 39 mg/dL Invalid Interpretation Code 40 - 60 mg/dL AO ADM SS Cholesterol in LDL [Mass/Vol] 112 mg/dL Invalid Interpretation Code 0 - 130 mg/dL AO ADM SS CO2 [Moles/Vol] 30 mmol/L Invalid Interpretation Code 23 - 31 mmol/L AO ADM SS Creatinine [Mass/Vol] 1.00 mg/dL Invalid Interpretation Code 0.70 - 1.30 mg/dL AO ADM SS Electrolyte Balance 8.0 mEq/L Invalid Interpretation Code 4.0 - 15.0 mEq/L AO ADM SS Globulin 3.6 G/dL Invalid Interpretation Code AO ADM SS Glucose [Mass/Vol] 97 mg/dL Invalid Interpretation Code 80 - 115 mg/dL AO ADM SS Potassium [Moles/Vol] 4.4 mmol/L Invalid Interpretation Code 3.5 - 5.1 mmol/L AO ADM SS Protein [Mass/Vol] 7.6 G/dL Invalid Interpretation Code 6.4 - 8.2 G/dL AO ADM SS Sodium [Moles/Vol] 142 mmol/L Invalid Interpretation Code 136 - 145 mmol/L AO ADM SS Triglyceride [Mass/Vol] 161 mg/dL Invalid Interpretation Code 0 - 150 mg/dL AO ADM SS Urea nitrogen [Mass/Vol] 12 mg/dL Invalid Interpretation Code 7 - 18 mg/dL AO ADM SS Urea nitrogen/Creatinine [Mass ratio] 12 ratio Invalid Interpretation Code 7 - 27 ratio AO ADM SS LABORATORYOrdered By: SYSTEM SYSTEM on 04-20-2022 GFR 91 ml/min/1.73sqm Invalid Interpretation Code AO Chemistry S GFR Non- 75 ml/min/1.73sqm Invalid Interpretation Code AO Chemistry S LABORATORYOrdered By: Mimi Bowman on 10-20-2021 Albumin BCP dye [Mass/Vol] 4.2 G/dL Invalid Interpretation Code 3.4 - 4.8 G/dL AO ADM SS Albumin/Globulin [Mass ratio] 1.1 {ratio} Invalid Interpretation Code 1.1 - 2.5 ratio AO ADM SS ALP [Catalytic activity/Vol] 80 U/L Invalid Interpretation Code 40 - 135 U/L AO ADM SS ALT With P-5'-P [Catalytic activity/Vol] 55 U/L Invalid Interpretation Code 16 - 63 U/L AO ADM SS AST With P-5'-P [Catalytic activity/Vol] 41 U/L Invalid Interpretation Code 10 - 40 U/L AO ADM SS Bilirubin [Mass/Vol] 0.6 mg/dL Invalid Interpretation Code 0.2 - 1.0 mg/dL AO ADM SS Calcium [Mass/Vol] 9.1 mg/dL Invalid Interpretation Code 8.4 - 10.2 mg/dL AO ADM SS Chloride [Moles/Vol] 103 mmol/L Invalid Interpretation Code 98 - 107 mmol/L AO ADM SS Cholesterol [Mass/Vol] 216 mg/dL Invalid Interpretation Code 0 - 200 mg/dL AO ADM SS Cholesterol in HDL [Mass/Vol] 45 mg/dL Invalid Interpretation Code 40 - 60 mg/dL AO ADM SS Cholesterol in LDL [Mass/Vol] 134 mg/dL Invalid Interpretation Code 0 - 130 mg/dL AO ADM SS CO2 [Moles/Vol] 24 mmol/L Invalid Interpretation Code 23 - 31 mmol/L AO ADM SS Creatinine [Mass/Vol] 0.70 mg/dL Invalid Interpretation Code 0.70 - 1.30 mg/dL AO ADM SS Electrolyte Balance 14.0 mEq/L Invalid Interpretation Code 4.0 - 15.0 mEq/L AO ADM SS Globulin 3.8 G/dL Invalid Interpretation Code AO ADM SS Glucose [Mass/Vol] 102 mg/dL Invalid Interpretation Code 80 - 115 mg/dL AO ADM SS Potassium [Moles/Vol] 4.9 mmol/L Invalid Interpretation Code 3.5 - 5.1 mmol/L AO ADM SS Prostate specific Ag [Mass/Vol] 0.53 ng/mL Invalid Interpretation Code 0.00 - 4.00 ng/mL AO ADM SS Protein [Mass/Vol] 8.0 G/dL Invalid Interpretation Code 6.4 - 8.2 G/dL AO ADM SS Sodium [Moles/Vol] 141 mmol/L Invalid Interpretation Code 136 - 145 mmol/L AO ADM SS Triglyceride [Mass/Vol] 186 mg/dL Invalid Interpretation Code 0 - 150 mg/dL AO ADM SS Urea nitrogen [Mass/Vol] 14 mg/dL Invalid Interpretation Code 7 - 18 mg/dL AO ADM SS Urea nitrogen/Creatinine [Mass ratio] 20 ratio Invalid Interpretation Code 7 - 27 ratio AO ADM SS LABORATORYOrdered By: SYSTEM SYSTEM on 10-20-2021 GFR 138 ml/min/1.73sqm Invalid Interpretation Code AO Chemistry S GFR Non- 114 ml/min/1.73sqm Invalid Interpretation Code AO Chemistry S Vital Signs Date Time Vital Sign Value Performing Clinician Gabriella williamson 03-30-2025 09:26-0400 Body temperature 97.5 [degF] Camilo Oconnor Jr., ELEVATOR CONSTRUCTOR ELECTRIC.INDUSTRIAL RETROFIT DESIGNER Work Phone: [facility] 03-30-2025 09:26-0400 Body weight 98.43 kg Camilo Oconnor Jr., ELEVATOR CONSTRUCTOR ELECTRIC.INDUSTRIAL RETROFIT DESIGNER Work Phone: [facility] 03-30-2025 09:26-0400 Diastolic blood pressure 80 mm[Hg] Camilo Oconnor Jr., ELEVATOR CONSTRUCTOR ELECTRIC.INDUSTRIAL RETROFIT DESIGNER Work Phone: [facility] 03-30-2025 09:26-0400 Heart rate 76 /min Camilo Oconnor Jr., ELEVATOR CONSTRUCTOR ELECTRIC.INDUSTRIAL RETROFIT DESIGNER Work Phone: [facility] 03-30-2025 09:26-0400 Respiratory rate 18 /min Camilo Oconnor Jr., ELEVATOR CONSTRUCTOR ELECTRIC.INDUSTRIAL RETROFIT DESIGNER Work Phone: [facility] 03-30-2025 09:26-0400 SaO2% (BldA) [Mass fraction] 95 % Camilo Oconnor Jr., ELEVATOR CONSTRUCTOR ELECTRIC.INDUSTRIAL RETROFIT DESIGNER Work Phone: [facility] 03-30-2025 09:26-0400 Systolic blood pressure 179 mm[Hg] Camilo Oconnor Jr., ELEVATOR CONSTRUCTOR ELECTRIC.INDUSTRIAL RETROFIT DESIGNER Work Phone: [facility] 02-16-2025 09:30-0400 Body temperature 97.81 [degF] [place] Esthela DO Work Phone: [facility] 02-16-2025 09:30-0400 Body weight 98.88 kg [place] Esthela DO Work Phone: [facility] 02-16-2025 09:30-0400 Diastolic blood pressure 88 mm[Hg] Rubens Esthela DO Work Phone: [facility] 02-16-2025 09:30-0400 Heart rate 78 /min Rubens Esthela DO Work Phone: [facility] 02-16-2025 09:30-0400 Respiratory rate 18 /min [place] Esthela DO Work Phone: [facility] 02-16-2025 09:30-0400 SaO2% (BldA) [Mass fraction] 98 % Rubens Esthela DO Work Phone: [facility] 02-16-2025 09:30-0400 Systolic blood pressure 148 mm[Hg] Rubens Esthela DO Work Phone: [facility] Encounters Encounter Date Encounter Type Care Provider Facility Start: 05-08-2025 End: 05-08-[address]YA LANE DO Facility:[facility] Start: 05-08-2025 End: 05-08-[address]YA LANE DO [facility] Start: 04-14-2025 End: 04-14-2025 ambulatory NEENADIAMOND ELIZALDE ELEVATOR CONSTRUCTOR ELECTRIC-INDUSTRIAL RETROFIT DESIGNER [facility] Start: 04-14-2025 End: 04-14-2025 Patient encounter procedure PACO TAMPA ELEVATOR CONSTRUCTOR ELECTRIC-INDUSTRIAL RETROFIT DESIGNER [facility] Start: 03-30-2025 End: 03-30-2025 ambulatory SELF Facility:[id number] Start: 03-30-2025 End: 03-30-2025 Patient encounter procedure Camilo Oconnor ELEVATOR CONSTRUCTOR ELECTRIC.INDUSTRIAL RETROFIT DESIGNER Work Phone: [facility] Comment on above: URI, acute (Primary Dx); Acute cough; Wheezing Start: 02-16-2025 End: 02-16-[address] Facility:[id number] Start: 02-16-2025 End: 02-16-2025 Office outpatient visit 15 minutes [place] Esthela DO Work Phone: [facility] Comment on above: Bacterial sinusitis (Primary Dx); Acute otitis media, bilateral Start: 12-13-2024 End: 12-13-[address] DIYA LANE DO Facility:[facility] Start: 11-25-2023 End: 11-26-[address] DIYA LANE DO Facility:[facility] Start: 11-05-2022 End: 11-05-[address]YA LANE DO [facility] Start: 04-20-2022 End: 04-20-[address]YA L[address] DO [facility] Start: 10-20-2021 End: 10-20-[address]YA L[address] DO [facility] Procedures Date Procedure Procedure Detail Performing Clinician Start: 09-22-[address] DIYA OZUNA DO Comment on above: Repeat 5 yrs; Dr. Nitin calvert. States was seen in 2017 for f/u. Start: 09-04-[address] DIYA OZUNA DO Plan of Treatment Date Care Activity Detail Author Start: 2032 RSV Vaccine (1 - 1-d ose 75+ series) RSV Vaccine (1 - 1-dose 75+ series) [facility] Start: 12-28-2025 Urine microalbumin profile DTa P,Tdap,Td Vaccine (2 - Td or Tdap) [facility] Start: 05-05-2025 Influenza vaccination [facility] Start: 09-04-2024 Advance Directive Discussion Advance Directive Discussion [facility] Start: 09-04-2024 Medicare Advantage A nnual Wellness Visit Medicare Advantage Annual Wellness Visit [facility] Start: 05-05-2024 Covid-19 Vaccine ( season) Covid-19 Vaccine () [facility] Start: 2002 Diabetes Screening Diabetes Screenin g [facility] Start: 2002 Prostate specific an tigen measurement Prostate Cancer Screening Discussion [facility] Start: 2002 Screening for malign ant neoplasm of colon [facility] Start: 1992 Lipid panel Lipid Screening [facility] Start: 1975 Anxiety Screening Anxiety Screening [facility] Start: 1975 Depression Screening Depression Scre ening [facility] Start: 1975 Hepatitis C screening Hepatitis C Sc ko [facility] Immunizations Immunization Date Immunization Notes Care Provider Fa cili 06-16-2023 SARS-CoV-2 (COVID-19 ) [id number] [facility] ELEVATOR CONSTRUCTOR ELECTRIC-INDUSTRIAL RETROFIT DESIGNER [facility] 06-16-2023 influenza virus vacc ine, unspecified formulation [place] Proctor DO Work Phone: [facility] 10-31-2022 Pneumococcal conjuga te PCV20, polysaccharide [id number] conjugate, adjuvant, PF; Translations: [Prevnar 20] DR DIYA LANE DO [facility] 05-30-2022 influenza virus vacc ine, unspecified formulation DR DIYA LANE DO [facility] 05-30-2022 SARS-CoV-2 (CV19)mRNA-1273 bivalent vac [facility] ELEVATOR CONSTRUCTOR ELECTRIC-INDUSTRIAL RETROFIT DESIGNER [facility] 05-30-2022 SARSCoV2 (CV19)mRNA-1273(6y+ bival marielle DR DIYA LANE DO [facility] 08-17-2021 SARS-CoV-2 (COVID-19 ) mRNA-[address] L[address] DO [facility] 07-29-2021 influenza virus vacc ine, unspecified formulation DR DIYA LANE DO [facility] 12-16-2020 SARS-CoV-2 (COVID-19 ) mRNA-[address] L[address] DO [facility] 11-18-2020 SARS-CoV-2 (COVID-19 ) mRNA-[address] L[address] DO [facility] 07-25-2019 influenza virus vacc ine, unspecified formulation DR DIYA LANE DO [facility] 11-10-[address]YA L[address] DO [facility] 06-24-[address] DIYA L[address] DO [facility] 12-29-2015 tetanus toxoid, redu francesco diphtheria toxoid, and acellular pertussis vaccine, adsorbed DR DIYA LANE DO [facility] 05-28-2014 zoster vaccine, live DR KATELYNN LANE DO [facility] Payers Date Payer Category Payer Private Health Insurance [id number] 2024 Medicare (Managed Care) [id number] 2024 Unknown [id number] 2023 Private Health Insurance [id number] 1955 Unknown [id number] 1955 Unknown [id number] 1957 Unknown [id number] [id number]. [id number] 1955 Unknown [id number] Social History Date Type Detail Facility Start: 07-31-2019 Ex-smoker (finding) [facility] Sex Assigned At Male [facility] Start: 02-16-2025 Tobacco smoking stat [facility] Never smoked tobacco [facility] Start: 02-16-2025 Tobacco use and exposure Smoke less tobacco non-user [facility] Start: 02-16-2025 End: 03-30-2025 Alcoholic beverage intake Current drinker of alcohol (finding) [facility] Start: 02-16-2025 End: 03-30-2025 History of Social function [facility] Start: 02-16-2025 End: 03-30-2025 Tobacco use panel [facility] Start: 1955 Sex assigned at Not on file [facility] Adult Depression Screening Assessment 0 [facility] Sexual Orientation [facility] Start: 04-30-2014 Sex Male (finding) [facility] Clinical Notes 12-27-2024 to 04-14-2025 Note Date & Type Note Facility 04-14-2025 Note Exam Date Time Procedure Performing Provider Status 04/14/25 10:55 AM XR Chest 2 Views BRODY MULTANI MD; [facility] (Verified) [id number] ORIGINAL EXAMINATION: TWO XRAY VIEWS OF THE CHEST TECHNIQUE: CHEST PA and LATERAL COMPARISON: 12/20/2017 HISTORY: ORDERING SYSTEM PROVIDED HISTORY: Reason for Exam: cough greater than 3 weeks FINDINGS: The heart is normal in size. The mediastinal silhouette is unremarkable. Atherosclerosis of the aorta. No consolidation. No vascular congestion. No pleural effusion or pneumothorax. No aggressive osseous lesions. Mild degenerative changes of the thoracic spine. Spinal curvature noted. IMPRESSION: No acute radiographic finding. I have personally reviewed the images of this examination and agree with the resident's findings and interpretation. Interpreted by: Brody Multani MD Preliminary Report By: Daniel Shane Electronically signed By Brody Multani MD Dictated Date: 04/14/2025 10:56:18 AM Prelim Date: 04/14/2025 12:02:29 PM Sign Date: 04/14/2025 12:02:29 PM Ordering Provider: [facility]07-27-2025 NoteHNO ID: [id number] Author: CAMILO OCONNOR JR, APRN.INDUSTRIAL RETROFIT DESIGNER Service: ? Author Type: Nurse Practitioner Type: Progress Notes Filed: 03/30/2025 10:02 Note Text: [facility] Theo Melgar is a 69 year old male. Patient presents with: Cough: Sinus congestion, ears plugged x 1 month Finished medication from last visit only felt better for 1 week Cough Cough and Congestion: - Cough and congestion x3 weeks, with recent onset of right ear fullness. - Describes a raspy gurgling sound when breathing, particularly noticeable at night. - Denies fever, dyspnea, chest pain, nausea, emesis, diarrhea, or rashes. - Began taking Zyrtec yesterday; denies use of Kimber or other antihistamines prior. - No history of asthma. - Denies previous tonsillectomy. Hypertension: - Denies known history of HTN. - Recent BP readings: 148/88 mmHg in February; 179/80 mmHg today. - Consumed several cups of coffee prior to today's visit. Review of Systems Respiratory: Positive for cough. Constitutional: (-) fever Ears/Nose/Mouth/Throat: (+) right ear fullness, (+) hoarseness, (-) ear pain Cardiovascular: (-) chest pain Respiratory: (+) cough, (+) wheezing, (+) noisy breathing, (-) shortness of breath Gastrointestinal: (-) nausea, (-) vomiting, (-) diarrhea Skin: (-) rash Objective BP 179/80 Pulse 76 Temp 36.4 ?C (97.5 ?F) Resp 18 Wt 98.4 kg (217 lb) SpO2 95% Physical Exam General: No acute distress. HEENT: Left tympanic membrane pearly ogden, no signs of infection; right tympanic membrane pearly ogden, no signs of infection; ear canals appear normal, no erythema; no cerumen impaction bilaterally; no pain with manipulation of right earlobe; oropharynx unremarkable, no cobblestoning, tonsils present and small. CV: Heart sounds normal, regular rhythm. Resp: Lungs clear to auscultation bilaterally, no rales, no stridor. Abd: Bowel sounds normal; no tenderness to palpation. Skin: Warm and dry { 1. URI, acute (J06.9) 2. Acute cough (R05.1) 3. Wheezing (R06.2) - Symptoms and exam findings most consistent with viral URI; bacterial infection less likely given absence of fever, normal tympanic membranes, and no cobblestoning of the oropharynx. - Start Bromfed DM every 4 hours PRN for cough; advised patient of sedative effects and to avoid operating heavy machinery. - Continue Zyrtec as started by patient. - Start albuterol inhaler 2 puffs every 4-6 hours PRN for wheezing; provided education on proper use and potential side effects (e.g., jitteriness). - Advised patient to follow up if symptoms worsen or do not improve. and Recording using Airware software for draft documentation of the visit was discussed with the patient/authorized benefits representative; all questions welcomed and answered. Patient/authorized benefits representative agreed to proceed Differential Diagnoses - Upper respiratory infection viral is more likely for the following reason(s): suggested by HANDP - Otitis media is less likely for the following reason(s): HANDP not suggestive Disposition The patient was discharged. [facility]07-27-2025 History of Present illness Narrative* Camilo Oconnor Jr., ELEVATOR CONSTRUCTOR ELECTRIC.INDUSTRIAL RETROFIT DESIGNER - 03/30/2025 10:00 AM EDT [facility] Theo Melgar is a 69 year old male. Patient presents with: Cough: Sinus congestion, ears plugged x 1 month Finished medication from last visit only felt better for 1 week Cough Cough and Congestion: - Cough and congestion x3 weeks, with recent onset of right ear fullness. - Describes a raspy gurgling sound when breathing, particularly noticeable at night. - Denies fever, dyspnea, chest pain, nausea, emesis, diarrhea, or rashes. - Began taking Zyrtec yesterday; denies use of Kimber or other antihistamines prior. - No history of asthma. - Denies previous tonsillectomy. Hypertension: - Denies known history of HTN. - Recent BP readings: 148/88 mmHg in February; 179/80 mmHg today. - Consumed several cups of coffee prior to today's visit. Review of Systems Respiratory: Positive for cough. Constitutional: (-) fever Ears/Nose/Mouth/Throat: (+) right ear fullness, (+) hoarseness, (-) ear pain Cardiovascular: (-) chest pain Respiratory: (+) cough, (+) wheezing, (+) noisy breathing, (-) shortness of breath Gastrointestinal: (-) nausea, (-) vomiting, (-) diarrhea Skin: (-) rash Objective BP 179/80 Pulse 76 Temp 36.4 C (97.5 F) Resp 18 Wt 98.4 kg (217 lb) SpO2 95% Physical Exam General: No acute distress. HEENT: Left tympanic membrane pearly ogden, no signs of infection; right tympanic membrane pearly ogden, no signs of infection; ear canals appear normal, no erythema; no cerumen impaction bilaterally; no pain with manipulation of right earlobe; oropharynx unremarkable, no cobblestoning, tonsils present and small. CV: Heart sounds normal, regular rhythm. Resp: Lungs clear to auscultation bilaterally, no rales, no stridor. Abd: Bowel sounds normal; no tenderness to palpation. Skin: Warm and dry { 1. URI, acute (J06.9) 2. Acute cough (R05.1) 3. Wheezing (R06.2) - Symptoms and exam findings most consistent with viral URI; bacterial infection less likely given absence of fever, normal tympanic membranes, and no cobblestoning of the oropharynx. - Start Bromfed DM every 4 hours PRN for cough; advised patient of sedative effects and to avoid operating heavy machinery. - Continue Zyrtec as started by patient. - Start albuterol inhaler 2 puffs every 4-6 hours PRN for wheezing; provided education on proper use and potential side effects (e.g., jitteriness). - Advised patient to follow up if symptoms worsen or do not improve. and Recording using ambient AIsoftware for draft documentation of the visit was discussed with the patient/authorized benefits representative; all questions welcomed and answered. Patient/authorized benefits representative agreed to proceed Differential Diagnoses - Upper respiratory infection viral is more likely for the following reason(s): suggested by H&P - Otitis media is less likely for the following reason(s): H&P not suggestive Disposition The patient was discharged. [facility] Instructions* Patient Instructions* Camilo Oconnor Jr., APRN.CNP - 03/30/2025 9:56 AM EDT - Continue taking Cetirizine (Zyrtec) once daily as you started. - Use the Bromfed DM cough syrup provided. Take as needed every 4 hours for cough and nasal congestion; best taken at bedtime since it may cause drowsiness. Avoid using it before activities that require full alertness. - Try the albuterol inhaler only if you notice wheezing or chest tightness. Prime a new inhaler (orone unused for =3 months) per instructions, then take 2 puffs 2 minutes apart; you may repeat every4-6 hours as needed. You might feel a brief jumpy sensation for 10-30 minutes, which is normal. - Recheck your blood pressure outside the office--either at a pharmacy or with a reliable upper-armhome cuff (avoid wrist devices)--to see if the elevated reading today reflects white-coat effect. - Call or return to the clinic if your cough, chest congestion, or ear symptoms worsen, if you develop a fever, or if you have any new concerns. documented in [facility] NoteHNO ID: [id number] Author: RUBENS PROCTOR, DO Service: ? Author Type: Physician Type: Progress Notes Filed: 02/16/2025 09:50 Note Text: [facility] Subjective Georges Melgar is a 69 year old male. Patient presents with: Cough: Chest/sinus congestion all over 2 weeks Cough Georges Melgar is a 69-year-old male, otherwise healthy, presenting with sinus congestion, chest congestion, and cough. Georges reports a 2-week history of sinus congestion, chest congestion, and cough. Over the past 3-4 days, he has noticed worsening chest congestion, described as a sensation of congestion when breathing. He reports clear sputum production and denies fever, chills, otalgia, or recent travel outside of the state or country. He has not contacted his primary care physician regarding these symptoms. He denies a history of asthma, COPD, or dental infections. He is a nonsmoker. Review of Systems Respiratory: Positive for cough. Constitutional: (-) fever Ears/Nose/Mouth/Throat: (+) sinus congestion, (-) ear pain Respiratory: (+) chest congestion, (+) cough, (+) clear sputum production, (+) chest discomfort with breathing Objective BP 148/88 Pulse 78 Temp 36.6 ?C (97.8 ?F) Resp 18 Wt 98.9 kg (218 lb) SpO2 98% Physical Exam General: No acute distress. HEENT: Right tympanic membrane erythematous and bulging; bilateral tympanic membranes swollen; significant sinus congestion; post-nasal drip; mild nasal congestion; no significant cervical lymphadenopathy. Resp: Lungs clear to auscultation bilaterally; no wheezing. {ASSESSMENT/PLAN: 1. Bacterial sinusitis - ICD9: 473.9, 041.9, ICD10: J32.9, B96.89 (primary diagnosis) 2. Acute otitis media, bilateral - ICD9: 382.9, ICD10: H66.93 Persistent symptoms for over two weeks, including sinus congestion, chest congestion, and cough. Bilateral ear examination reveals erythema and bulging tympanic membranes. No history of asthma or COPD. Lungs clear to auscultation, no wheezing noted. Differential diagnosis includes bacterial sinusitis and acute otitis media, likely contributing to post-nasal drip and chest congestion. - Prescribed doxycycline for ear infection and sinus infection given penicillin allergy. - Initiated a short course of oral prednisone to reduce chest congestion and cough. Continue NyQuil DayQuil, cough, decongestions, [id number] medications as needed. Other symptoms should be more self-limiting - Advised patient to follow up with primary care physician if symptoms do not improve within one week. - Sent prescriptions to patient's pharmacy. Rubens Proctor DO Differential Diagnoses - Bilateral otitis, bacterial sinus infection is more likely for the following reason(s): suggested by HANDP - Pneumonia is less likely for the following reason(s): HANDP not suggestive Disposition The patient was discharged. OTC Medications were advised: [facility]06-15-2025 History of Present illness Narrative* Rubens Proctor DO - 02/16/2025 9:46 AM EDT [facility] Subjective Georges Melgar is a 69 year old male. Patient presents with: Cough: Chest/sinus congestion all over 2 weeks Cough Georges Melgar is a 69-year-old male, otherwise healthy, presenting with sinus congestion, chestcongestion, and cough. Georges reports a 2-week history of sinus congestion, chest congestion, and cough. Over the past 3-4 days, he has noticed worsening chest congestion, described as a sensation of congestion when breathing. He reports clear sputum production and denies fever, chills, otalgia, or recent travel outside ofthe state or country. He has not contacted his primary care physician regarding these symptoms. He d enies a history of asthma, COPD, or dental infections. He is a nonsmoker. Review of Systems Respiratory: Positive for cough. Constitutional: (-) fever Ears/Nose/Mouth/Throat: (+) sinus congestion, (-) ear pain Respiratory: (+) chest congestion, (+) cough, (+) clear sputum production, (+) chest discomfort with breathing Objective BP 148/88 Pulse 78 Temp 36.6 C (97.8 F) Resp 18 Wt 98.9 kg (218 lb) SpO2 98% Physical Exam General: No acute distress. HEENT: Right tympanic membrane erythematous and bulging; bilateral tympanic membranes swollen; significant sinus congestion; post-nasal drip; mild nasal congestion; no significant cervical lymphadenopathy. Resp: Lungs clear to auscultation bilaterally; no wheezing. {ASSESSMENT/PLAN: 1. Bacterial sinusitis - ICD9: 473.9, 041.9, ICD10: J32.9, B96.89 (primary diagnosis) 2. Acute otitis media, bilateral - ICD9: 382.9, ICD10: H66.93 Persistent symptoms for over two weeks, including sinus congestion, chest congestion, and cough. Bilateral ear examination reveals erythema and bulging tympanic membranes. No history of asthma or COPD. Lungs clear to auscultation, no wheezing noted. Differential diagnosis includes bacterial sinusitis and acute otitis media, likely contributing to post-nasal drip and chest congestion. - Prescribed doxycycline for ear infection and sinus infection given penicillin allergy. - Initiated a short course of oral prednisone to reduce chest congestion and cough. Continue NyQuilDayQuil, cough, decongestions, [id number] medications as needed. Other symptoms should be more self-limiting - Advised patient to follow up with primary care physician if symptoms do not improve within one week. - Sent prescriptions to patient's pharmacy. Rubens Proctor DO Differential Diagnoses - Bilateral otitis, bacterial sinus infection is more likely for the following reason(s): suggestedby H&P - Pneumonia is less likely for the following reason(s): H&P not suggestive Disposition The patient was discharged. OTC Medications were advised: Procedures * Asiha Gong LPN - 02/16/2025 9:27 AM EDT Patient declined depression screening at this time. Aisha Gong LPN [facility] Instructions* Patient Instructions* Rubens Proctor DO - 02/16/2025 9:45 AM EDT Sinusitis You have been seen for a sinus infection. Sinus infections are common. They often happen after people have a virus or a common cold. Symptoms are: Pain in the face, green or yellow mucous from the nose, fever (temperature higher than 100.4 F / 38 C) and chills. There may also be a feeling of fullness or pressure in the face. Decongestants may be used to help the sinuses drain. Sometimes a steroid spray is used. You may need antibiotics for the infection. Not all cases of sinusitis need antibiotics. Viruses cause most sinusitis. Antibiotics do not work on viruses. Sometimes sinusitis and be caused by bacteria. These cases usually get better with medicine to help the sinuses drain. Antibiotics should be given only to patients who have symptoms for more than 2 weeks and if they have fever, severe sinus pain and pus mixed in with the mucus. YOU SHOULD SEEK MEDICAL ATTENTION IMMEDIATELY, EITHER HERE OR AT THE NEAREST EMERGENCY DEPARTMENT, IF ANY OF THE FOLLOWING OCCURS: You do not get better with treatment. You have severe headaches and high fever (temperature higher than 100.4 F / 38 C) or any confusion. You have worse pain in the face Your face gets more swollen documented in this encounterMet[facility]25 NoteHNO ID: [id number] Author: AISHA GONG LPN Service: ? Author Type: LICENSED NURSE Type: Progress Notes Filed: 02/16/2025 09:50 Note Text: Patient declined depression screening at this time. Aisha Gong, [facility]04-25-2025 Evaluation + Plan note Future Scheduled Tests Laboratory* Prostate Specific Antigen 12/27/24 * Lipid Profile 12/27/24 * Complete Metabolic Panel 12/27/24 [facility] Evaluation + Plan note Future Appointments Appointment Date:10/28/2021 11:30:00 AM Scheduled Provider:DIYA LANE DO Location:[facility] Appointment Type:PC Wellness Annual [facility] Evaluation + Plan note Future Appointments Appointment Date:05/08/2025 03:30:00 PM Scheduled Provider:DIYA LANE DO Location:[facility] Appointment Type: OV Future Scheduled Tests Laboratory* Prostate Specific Antigen 12/27/24 * Lipid Profile 12/27/24 * Complete Metabolic Panel 12/27/24 [facility] Evaluation note* Diagnosis Bacterial sinusitis- Primary Unspecified sinusitis (chronic) Acute otitis media, bilateral Unspecified otitis media documented in this encounter [facility] Diagnosis URI, acute- Primary Acute upper respiratory infections of unspecified site Acute cough Wheezing documented in this encounter [facility] course Narrative No data available for this section [facility] Hospital Discharge instructions No data available for this section [facility] Progress note No data available for this section [facility] Summary Purpose Family History No Family History Records FoundNo Family History Records Found No data available for this section No data available for this section No Family History Records Found Advance Directives No Advanced Directives Records FoundNo Advanced Directives Records FoundNo Advanced Directives Records Found Additional Source Comments Care Team (unrecognized sect ion and content) Care Team Personnel Name: DIYA LANE DO Position: P4 Physician - Primary Care Med Service: Active Provider Member Role: Primary Care Physician Address: Address: [facility] Veronica Mueller [address] Care Team Related Persons Name: DECLINED, DECLINED Care Team Personnel Name: DIYA LANE DO Position: P4 Physician - Primary Care Member Role: Primary Care Physician Address: Address: [facility] [address] Care Team Related Persons Name: DECLINED, DECLINED (unrecognized sect ion and content) No Status Records FoundNo Status Records FoundNo Status Records Found INFORMATION SOURCE (unrecogn ized section and content) DATE CREATED AUTHOR 11/27/2023 [facility] ([place]) DATE CREATED AUTHOR AUTHOR'S ORGANIZ ATION 03/30/2025 [facility] DATE CREATED AUTHOR AUTHOR'S ORGANIZ ATION 05/10/2025 [facility] Source Comments (unrecognize d section and content) In the event this informatio n is protected by the Federal Confidentiality of Alcohol and Drug Abuse Patient Records regulations: The Federal rules restrict any use of the information to criminally investigate or prosecute any alcohol or drug abuse patient.[facility] Center[facility] the event this information is protected by the Federal Confidentiality of Alcohol and Drug Abuse Patient Records regulations: The Federal rules restrict any use of the information to criminally investigate or prosecute any alcohol or drug abuse patient.[facility] Reason for Visit (unrecogniz ed section and content) Reason Comments Cough Chest/sinus congesti on all over 2 weeks Reason Comments Cough Sinus congestion, ea rs plugged x 1 monthFinished medication from last visit only felt better for 1 week Care Teams (unrecognized sec tion and content) Section Weaver Relationship Specialty Start Date End Date Diya Lane DO [address] [place] [address] PCP - General Family Medicine 02/16/25 Section Weaver Relationship Specialty Start Date End Date Diya Lane DO [address] [facility] [place] [address] PCP - General Family Medicine 02/16/25 FOR RECORDS PERTAINING TO PATIENTS WHO ARE OR HAVE BEEN ENROLLED IN A CHEMICAL DEPENDENCY/SUBSTANCEABUSE PROGRAM, SOME INFORMATION MAY BE OMITTED. This clinical summary was aggregated from multiple sources. Caution should be exercised in using it in the provision of clinical care. This summary normalizes information from multiple sources, and as a consequence, information in this document may materially change the coding, format and clinical context of patient data. In addition, data may be omitted in some cases. CLINICAL DECISIONS SHOULD BE BASED ON THE PRIMARY CLINICAL RECORDS. [facility]. provides no warranty or guarantee of the accuracy or completeness of information in this document.
== END | disposition home or self-care (01) ==
PROVIDERS: PCP Family Medicine; Referring Provider Otolaryngology; Visit Provider Otolaryngology
DX: J32.8 Other chronic sinusitis (principal)
CPT/HCPCS: 70486